=== PATIENT | female | born 1940 | race Caucasian/White ===

== ENCOUNTER 2025-07-08 10:58 | Emergency (ER) | payer MEDICARE ==
[2025-07-08 11:44] LABS: #Basophils 0.1 thou/uL (0.0-0.2); #Eosinophils 0.2 thou/uL (0.0-0.7); #Lymphocytes 1.4 thou/uL (1.20-3.40); #Monocytes 0.7 thou/uL (0.11-0.59); #Neutrophils 7.8 thou/uL (1.40-6.50); %Basophils 1.1 % (0.0-1.0); %Eosinophils 2.2 % (0.0-10.0); %Lymphocytes 14.0 % (21.0-51.0); %Monocytes 6.4 % (0.0-10.0); %Neutrophils 76.3 % (42.0-75.0); Hematocrit 36.5 % (36.0-47.0); Hemoglobin 11.7 g/dL (12.0-16.0); Mean Corpuscular Hemoglobin 25.2 pg (27.0-31.0); Mean Corpuscular Volume 78.4 fl (78.0-98.0); Platelet Count 262 10x3/uL (130-400); Red Blood Cell (RBC) Count 4.65 mill/uL (4.20-5.40); White Blood Cell (WBC) Count 10.2 10x3/uL (4.8-10.8)
[2025-07-08 11:50] LABS: ALT (SGPT) 9 U/L (Less than 34); AST (SGOT) 16 U/L (11-34); Albumin 3.7 g/dL (3.1-4.5); Alkaline Phosphatase 80 U/L (40-110); Anion Gap 16 mmol/L (10-20); BUN (Urea Nitrogen) 23 mg/dL (9.8-20.1); Bilirubin, Total 0.3 mg/dL (0.3-1.2); Calc. Creatinine Clearance 0 mL/min (70-130); Calcium 9.2 mg/dL (7.8-10.44); Carbon Dioxide 22 mmol/L (23-31); Chloride 105 mmol/L (98-107); Globulin 3.9 g/dL (2.4-3.5); Glucose 135 mg/dL (83-110); Potassium 4.1 mmol/L (3.5-5.1); Sodium 139 mmol/L (136-145)
[2025-07-08 11:52] LABS: Troponin I Less than 0.010 ng/mL (< 0.028)
[2025-07-08 12:11] LABS: CAUTI Indications for Culture Pelvic or flank pain; Glucose, Urine (Dipstick) Negative (Negative); Leukocyte Small (Negative); Protein, Urine (Dipstick) Negative (Neg-Trace); RBC/HPF 0-3 HPF (0-3); Specific Gravity, Urine Less/Equal 1.005 (1.005-1.030); WBC/HPF 0-3 HPF (0-3)
[2025-07-08 12:13] LABS: Urine Culture Reflex No No
== END 2025-07-08 12:53 | disposition home or self-care (01) ==
LOC: NAV ERS 10:58
DX: I34.0 Nonrheumatic mitral (valve) insufficiency (principal); I34.2 Nonrheumatic mitral (valve) stenosis; I10 Essential (primary) hypertension; I48.91 Unspecified atrial fibrillation; Z95.0 Presence of cardiac pacemaker
CPT/HCPCS: 71045; 80053; 81001; 83880; 84484; 85025; 87400; 87426; 93005; 96360; J7030